=== PATIENT | male | born 1990 | race Caucasian/White ===

== ENCOUNTER 2019-05-11 22:54 | Inpatient (IN) | payer BC, OTHER ==
[~2019-05-11] VITALS: Ht 188 cm; Wt 144.0 kg
[2019-05-11 23:38] LABS: HEMATOCRIT 48.2 % (42.0-52.0); HEMOGLOBIN 16.4 g/dl (13.5-17.5); MEAN CORPUSCULAR HEMOGLOBIN 30.8 pg (27.0-33.0); MEAN CORPUSCULAR VOLUME 90.4 fl (80.0-96.0); PLATELET COUNT, AUTOMATED 270 10^3/uL (150-450); RED BLOOD COUNT 5.33 10^6/uL (4.30-6.10); WHITE BLOOD COUNT 13.2 10^3/uL (4.0-10.0)
[2019-05-12 00:20] LABS: ALBUMIN 4.8 GM/DL (3.2-5.2); ALT/SGPT 48 U/L (12-78); BILIRUBIN,DIRECT 0.2 MG/DL (0.0-0.2); BILIRUBIN,TOTAL 0.8 MG/DL (0.2-1.0); BLOOD UREA NITROGEN 15 MG/DL (7-18); CALCIUM LEVEL 9.4 MG/DL (8.5-10.1); CARBON DIOXIDE LEVEL 27 MEQ/L (21-32); CHLORIDE LEVEL 106 MEQ/L (98-107); CREATININE FOR GFR 0.93 MG/DL (0.70-1.30); GLOMERULAR FILTRATION RATE > 60.0 (>60); GLUCOSE, FASTING 93 MG/DL (70-100); POTASSIUM SERUM 3.6 MEQ/L (3.5-5.1); SALICYLATE LEVEL < 1.7 MG/DL (5.0-30.0); SODIUM LEVEL 142 MEQ/L (136-145); TOTAL PROTEIN 8.2 GM/DL (6.4-8.2)
[2019-05-12 00:21] LABS: ACETAMINOPHEN LEVEL < 2.0 UG/ML (10.0-30.0)
[2019-05-12] MEDS ORDERED: MAGN400C2 PO (00:53)
[2019-05-12] MEDS ORDERED: ESOM1CAP5 PO (00:53)
[2019-05-12] MEDS ORDERED: QUET400T PO (00:53)
[2019-05-12] MEDS ORDERED: CLON0.5T2 PO (00:53)
[2019-05-12] MEDS ORDERED: CETI10CH PO (00:53)
[2019-05-12] MEDS ORDERED: ESCI20TA PO (00:53)
[2019-05-12] MEDS ORDERED: HYDR25TAB PO (00:53)
[2019-05-12] MEDS ORDERED: FAMO1TAB25 PO (00:53)
[2019-05-12 01:38] LABS: AMPHETAMINES LEVEL URINE NEGATIVE (NEGATIVE); BARBITURATES URINE NEGATIVE (NEGATIVE); BENZODIAZEPINES URINE NEGATIVE (NEGATIVE); CANNABINOIDS URINE POSITIVE (NEGATIVE); COCAINE METABOLITE URINE NEGATIVE (NEGATIVE); METHADONE URINE NEGATIVE (NEGATIVE); OPIATES URINE NEGATIVE (NEGATIVE); PHENCYCLIDINE URINE NEGATIVE (NEGATIVE)
[2019-05-12] MEDS ORDERED: ONDANSETRON 4 MG ORAL DISINTEGRATING TAB (Q0162 PER 1MG) PO ONE (05:00)
[2019-05-12] MEDS ORDERED: diphenhydrAMINE INJ 50MG/ML VIAL (J1200) As Ordered ONE (05:15)
[2019-05-12] MEDS ORDERED: HALOPERIDOL 5 MG/ML VIAL (J1630) As Ordered ONE (05:16)
[2019-05-12] MEDS ORDERED: LORazepam 2 MG/ML VIAL (J2060) As Ordered ONE (05:16)
[2019-05-12] MEDS ORDERED: diphenhydrAMINE INJ 50MG/ML VIAL (J1200) IM ONE (05:30)
[2019-05-12] MEDS ORDERED: LORazepam 2 MG/ML VIAL (J2060) IM ONE (05:30)
[2019-05-12] MEDS ORDERED: HALOPERIDOL 5 MG/ML VIAL (J1630) IM ONE (05:30)
[2019-05-12] MEDS ORDERED: LORazepam 2 MG/ML VIAL (J2060) IV STA (06:07)
[2019-05-12] MEDS ORDERED: clonazePAM 1 MG TAB PO ONE ×2 (12:45→17:45)
[2019-05-12] MEDS ORDERED: FAMOTIDINE 20 MG TAB PO ONE (17:45)
[2019-05-12] MEDS ORDERED: ESCITALOPRAM OXALATE 10 MG TAB (LEXAPRO) PO ONE (17:45)
[2019-05-12] MEDS ORDERED: QUEtiapine FUMARATE 200 MG TAB PO ONE (17:45)
[2019-05-12] MEDS ORDERED: hydroCHLOROthiazide 25 MG TAB PO ONE (17:45)
[2019-05-12] MEDS ORDERED: MAGNESIUM OXIDE 400 MG TAB (MAG-OX) PO ONE (18:00)
[2019-05-12] MEDS ORDERED: OMEPRAZOLE 20 MG CAP PO ONE (19:30)
[2019-05-13] MEDS ORDERED: FAMO40TA3 PO (07:16)
[2019-05-13] MEDS ORDERED: CLON2TAB7 PO (07:16)
[2019-05-13] MEDS ORDERED: LISI10TA4 PO (09:59)
[2019-05-13] MEDS ORDERED: clonazePAM 1 MG TAB PO ONE (10:00)
[2019-05-13] MEDS ORDERED: OMEPRAZOLE 20 MG CAP PO ONE (10:00)
[2019-05-13] MEDS ORDERED: ESCITALOPRAM OXALATE 10 MG TAB (LEXAPRO) PO ONE (10:00)
[2019-05-13] MEDS ORDERED: hydroCHLOROthiazide 25 MG TAB PO ONE (10:00)
[2019-05-13] MEDS ORDERED: lisinopriL 10 MG TAB PO ONE (10:00)
[2019-05-13] MEDS ORDERED: MOM 30ML SUSPENSION UDC PO PRN (12:30)
[2019-05-13] MEDS ORDERED: MAALOX 30 ML SUSP *UDC PO PRN (12:30)
[2019-05-13] MEDS ORDERED: traZODone 50 MG TAB PO PRN (12:30)
[2019-05-13] MEDS ORDERED: QUET200T2 PO (13:07)
[2019-05-13] MEDS ORDERED: ALL10TAB29 PO (13:07)
[2019-05-13] MEDS ORDERED: IPRA3SP (13:07)
[2019-05-13 14:41] VITALS: BP 136/84
[2019-05-13] MEDS: THIAMINE 100 MG TAB PO SCH ×2 (15:08→20:39)
[2019-05-13] MEDS: LORazepam 2 MG TAB PO PRN ×2 (15:08→20:39)
[2019-05-13] MEDS: MULTIVITAMINS/MINERALS THERAP 1 TAB PO SCH (15:09)
[2019-05-13] MEDS: FOLIC ACID 1 MG TAB PO SCH (15:09)
--- NOTE | 2019-05-13 19:51 | HPE ---
DATE OF ADMISSION: 05/13/2019 Date of Service: 05/13/2019 HISTORY OF THE PRESENT ILLNESS: Please refer to psychiatric history and evaluation for further details on this admission. This examination and history is intended for medical issues which may need treatment, followup, or consult on this 29-year-old male. ALLERGIES: CLINDAMYCIN. PRIMARY CARE PROVIDER: Dr. Kushal Leiva and that is in [place], [place]. SOCIAL HISTORY: He is single. He was up here vacationing. Ethyl alcohol (EtOH): Occasionally. He had none for 12 months and then he drank last night. He vapes. He chews a dip a day. Recreational drug use: Marijuana. He states he used it more for pain control of his neck. PAST MEDICAL HISTORY: Decreased hearing right ear. History of sleep apnea, wears his own bilevel positive airway pressure (BiPAP). Chronic neck pain. PAST SURGICAL HISTORY: Cervical spine fusion. Carpal tunnel release on the left. Cholecystectomy. HOME MEDICATIONS: - cetirizine 10 mg by mouth daily - clonazepam 2 mg by mouth three times a day as needed for anxiety - escitalopram 20 mg by mouth daily - famotidine 40 mg by mouth daily - hydrochlorothiazide 25 mg by mouth daily - ipratropium one spray nares three times a day as needed for allergies - lisinopril 10 mg by mouth daily - Seroquel 400 mg by mouth nightly - esomeprazole magnesium 40 mg by mouth twice a day - magnesium oxide 400 mg by mouth daily FAMILY HISTORY: His mother is of Roxanne's chorea. Father is alive and health history is unknown. LABORATORY STUDIES: WBC 13.2, hemoglobin 16.4, hematocrit 48.2, platelets 270. Electrolytes are normal. BUN 15, creatinine 0.93, TSH is 5.220. Toxicology: Urine is positive for cannabinoids. Ethyl alcohol was 0.180. REVIEW OF SYSTEMS: Eleven systems review was done, was unremarkable. No physical complaints. PHYSICAL EXAMINATION: A 29-year-old cooperative male in no acute distress. Height 74 inches, weight 145.45 kilograms, body mass index (BMI) 41.2. The patient is alert and oriented times three. Pupils equal and reactive to light. Extraocular movements intact. Cornea and sclerae clear. Conjunctivae is normal. No facial asymmetry. Pharynx: Tongue and gums pink and moist. Tongue is midline. Neck is supple without lymphadenopathy. No thyromegaly. No goiter. Carotids 2+ without bruits. Chest is clear to auscultation without wheeze or retractions. Heart is regular. Abdomen: Morbidly obese. No masses, pulsations or bruits. No organomegaly. Bowel sounds are positive. Genital/Rectal: Not done. Extremities: No cyanosis, clubbing or edema. Peripheral pulses equal and palpable bilaterally. Skin is warm and dry. IMPRESSION AND PLAN: Psychiatric plan per psychiatry. Slightly elevated thyroid-stimulating hormone (TSH). Will get a thyroid profile in the morning. Leukocytosis. Will repeat complete blood count (CBC) in the morning. Elevation may be secondary to stress. The patient has no hematuria, dysuria, or frequency. Has been afebrile. No cough. History of hypomagnesemia, is on magnesium. Will check a level. History of sleep apnea, patient may use his own BiPAP. History of environmental allergies. Will continue on cetirizine. No other acute medical issues. [facility], [place]
[2019-05-13] MEDS: QUEtiapine FUMARATE 200 MG TAB PO SCH (21:21)
[2019-05-14 06:27] LABS: BASO % 0.4 % (0.0-1.0); EOS # 0.1 10^3/uL (0.0-0.50); EOS % 1.3 % (0.0-3.0); HEMATOCRIT 44.7 % (42.0-52.0); HEMOGLOBIN 15.3 g/dl (13.5-17.5); LYMPH # 3.1 10^3/uL (1.5-4.5); LYMPH % 37.2 % (24.0-44.0); MEAN CORPUSCULAR HEMOGLOBIN 30.6 pg (27.0-33.0); MEAN CORPUSCULAR HGB CONC 34.2 g/dl (32.0-36.5); MEAN CORPUSCULAR VOLUME 89.4 fl (80.0-96.0); MONO # 0.7 10^3/uL (0.0-0.8); MONO % 8.6 % (0.0-5.0); NEUTROPHILS # 4.3 10^3/uL (1.8-7.7); NEUTROPHILS % 52.1 % (36.0-66.0); PLATELET COUNT, AUTOMATED 218 10^3/uL (150-450); WHITE BLOOD COUNT 8.2 10^3/uL (4.0-10.0)
[2019-05-14 06:49] VITALS: BP 145/89
[2019-05-14 06:50] VITALS: BP 145/89
[2019-05-14 07:02] LABS: FREE THYROXINE INDEX 2.8 % (1.4-3.8); MAGNESIUM LEVEL 2.3 MG/DL (1.8-2.4); THYROID STIMULATING HORMONE 1.93 uIU/ML (0.358-3.740); THYROXINE (T4) 9.2 UG/DL (4.5-12.0)
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
[2019-05-14] MEDS: THIAMINE 100 MG TAB PO SCH ×2 (08:20→20:49)
[2019-05-14] MEDS: ESCITALOPRAM OXALATE 10 MG TAB (LEXAPRO) PO SCH (08:20)
[2019-05-14] MEDS: FOLIC ACID 1 MG TAB PO SCH (08:20)
[2019-05-14] MEDS: MULTIVITAMINS/MINERALS THERAP 1 TAB PO SCH (08:20)
[2019-05-14] MEDS: LORazepam 2 MG TAB PO PRN ×4 (08:21→20:48)
[2019-05-14 08:55] VITALS: BP 175/98
[2019-05-14] MEDS: lisinopriL 10 MG TAB PO SCH (10:36)
[2019-05-14] MEDS: hydroCHLOROthiazide 25 MG TAB PO SCH (10:36)
[2019-05-14 11:07] VITALS: BP 138/77
[2019-05-14] MEDS: lamoTRIgine 25 MG TAB PO SCH (11:49)
[2019-05-14] MEDS: OMEPRAZOLE 20 MG CAP PO SCH ×2 (12:44→20:48)
[2019-05-14 16:41] VITALS: BP 158/98
[2019-05-14 20:00] VITALS: BP 137/77
--- NOTE | 2019-05-14 20:21 | MHIPN ---
DATE: 05/14/2019 VITAL SIGNS: Temperature 98.3, pulse 92, respirations 12, blood pressure 145/89. CURRENT MEDICATIONS: - Lexapro 20 mg daily - Seroquel 400 mg nightly - Ativan 2 mg every 4 hours as needed HISTORY OF PRESENT ILLNESS: Patient still reports feeling depressed, moderately to severely so. Patient becomes weepy talking about situational stressors. He claims he spoke to his girlfriend on the phone this morning. She has been concerned about him for the past 3 months, he has been quite depressed and irritable for this period of time. He gives verbal permission to speak to her. Patient is starting to attend groups. Patient is very fixated on going on a trial of Lamictal. Risk of Moe-Jesús syndrome thoroughly reviewed. Patient appears to think that Lamictal will be a panacea and a wonder drug. Patient is cautioned against such thinking. Patient is warned that it can take many weeks or even months to build up the therapeutic dosages but he is still highly adamant about going on a trial. No panic attacks here on the unit. Obsessive compulsive disorder (OCD) symptoms are mild. No posttraumatic stress disorder (PTSD) symptoms. MENTAL STATUS EXAMINATION: Patient is alert and oriented. Grooming and hygiene is reasonably good. He has good eye contact. Patient still reports depressive symptoms, now they are moderate to severe, not mild in degree. No signs of vanessa. He denies current suicidality. Patient is nonpsychotic. He does have a history of poor impulse control. Insight and judgment appear fair. Memory functions appear intact. ASSESSMENT: Patient appears to have an unrealistic expectation about Lamictal. Side effect profile thoroughly reviewed. DIAGNOSES: 1. Depressive disorder unspecified. 2. Rule out major depression. 3. Obsessive compulsive disorder. 4. Panic anxiety disorder. 5. Alcohol use disorder. 6. Posttraumatic stress disorder (PTSD) by history. 7. Rule out intermittent explosive disorder. PLAN: Start trial of Lamictal 25 mg daily. Staff to obtain further information from friends and family who are in the [place], [place] area. Patient encouraged to be involved in hospital milieu.
[2019-05-14] MEDS: QUEtiapine FUMARATE 200 MG TAB PO SCH (21:25)
[2019-05-15 06:51] VITALS: BP 118/75
[2019-05-15] MEDS: lamoTRIgine 25 MG TAB PO SCH (08:57)
[2019-05-15] MEDS: THIAMINE 100 MG TAB PO SCH (08:57)
[2019-05-15] MEDS: LORazepam 2 MG TAB PO PRN ×3 (08:57→13:01)
[2019-05-15] MEDS: hydroCHLOROthiazide 25 MG TAB PO SCH (08:57)
[2019-05-15] MEDS: FOLIC ACID 1 MG TAB PO SCH (08:57)
[2019-05-15] MEDS: MULTIVITAMINS/MINERALS THERAP 1 TAB PO SCH (08:57)
[2019-05-15] MEDS: ESCITALOPRAM OXALATE 10 MG TAB (LEXAPRO) PO SCH (08:57)
[2019-05-15] MEDS: OMEPRAZOLE 20 MG CAP PO SCH ×2 (08:58→21:36)
[2019-05-15] MEDS: lisinopriL 10 MG TAB PO SCH (08:59)
[2019-05-15] MEDS: clonazePAM 1 MG TAB PO PRN ×2 (16:03→21:36)
[2019-05-15 18:00] VITALS: BP 150/96
[2019-05-15] MEDS: QUEtiapine FUMARATE 200 MG TAB PO SCH (21:36)
[2019-05-15 21:39] VITALS: BP 138/89
[2019-05-16] MEDS: clonazePAM 1 MG TAB PO PRN ×3 (06:10→18:03)
[2019-05-16 06:53] VITALS: BP 150/69
[2019-05-16] MEDS: MULTIVITAMINS/MINERALS THERAP 1 TAB PO SCH (08:18)
[2019-05-16] MEDS: lamoTRIgine 25 MG TAB PO SCH (08:18)
[2019-05-16] MEDS: ESCITALOPRAM OXALATE 10 MG TAB (LEXAPRO) PO SCH (08:19)
[2019-05-16] MEDS: lisinopriL 10 MG TAB PO SCH (08:19)
[2019-05-16] MEDS: OMEPRAZOLE 20 MG CAP PO SCH ×2 (08:19→20:50)
[2019-05-16] MEDS: FOLIC ACID 1 MG TAB PO SCH (08:19)
[2019-05-16] MEDS: hydroCHLOROthiazide 25 MG TAB PO SCH (08:19)
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
[2019-05-16] MEDS ORDERED: haloperidoL 5 MG TAB PO ONE (12:00)
--- NOTE | 2019-05-16 13:30 | MHIPN ---
DATE: 05/15/2019 VITAL SIGNS: Temperature 98.0, pulse 77, respirations 12, blood pressure 118/75. CURRENT MEDICATIONS: - Ativan 2 mg four times a day - Lamictal 25 mg every morning - Lexapro 20 mg daily - Seroquel 400 mg nightly HISTORY OF PRESENT ILLNESS: Patient states his depression is less prominent today. He still complains of a great deal of anxiety however. He claims the Ativan is not as effective as the Klonopin. He claims that he takes four Klonopin per day for a number of years, he claims he does not abuse it. He claims he has a supply of Klonopin in his personal effects which is being prescribed by his primary care physician back in [place]. Patient pleased to be on the Lamictal, he is aware of the risk of Moe-Jesús syndrome and will notify staff if he shows any signs of a rash. Patient has been in touch with his girlfriend down in [place], she supports his hospitalization. Patient states that he has been attending groups and finds the therapy program helpful here. He states his appetite is fine. He sleeps well at night. He has no other complaints. MENTAL STATUS EXAMINATION: Patient alert, oriented, and cooperative. Affect is still sad, he gets tearful hearing about my departure. Mood is still mildly to moderately depressed. Patient reports anxiety level is high. He denies suicidal ideation. Grooming and hygiene appear good. No current signs of dangerousness. Insight and judgment are fair. ASSESSMENT: Patient appears to be responding to medication and milieu. Patient appears quite physiologically dependent upon his Klonopin. DIAGNOSES: 1. Depressive disorder unspecified. 2. Rule out major depression. 3. Obsessive compulsive disorder (OCD). 4. Panic anxiety disorder. 5. Alcohol use disorder. 6. Posttraumatic stress disorder (PTSD) by history. 7. Rule out intermittent explosive disorder. PLAN: Discontinue Ativan. Patient is switched back to Klonopin which he has been on for years apparently. Continue medication and milieu therapy. Patient to followup with Dr. Nunez tomorrow.
[2019-05-16] MEDS: haloperidoL 5 MG TAB PO SCH ×2 (17:06→20:49)
[2019-05-16 18:00] VITALS: BP 138/85
[2019-05-16] MEDS: IBUPROFEN 400 MG TAB PO PRN (20:00)
[2019-05-16] MEDS: QUEtiapine FUMARATE 200 MG TAB PO SCH (20:49)
[2019-05-17 06:44] VITALS: BP 148/78
[2019-05-17] MEDS: ESCITALOPRAM OXALATE 10 MG TAB (LEXAPRO) PO SCH (08:29)
[2019-05-17] MEDS: OMEPRAZOLE 20 MG CAP PO SCH ×2 (08:29→20:57)
[2019-05-17] MEDS: lamoTRIgine 25 MG TAB PO SCH (08:29)
[2019-05-17] MEDS: hydroCHLOROthiazide 25 MG TAB PO SCH (08:29)
[2019-05-17] MEDS: MULTIVITAMINS/MINERALS THERAP 1 TAB PO SCH (08:29)
[2019-05-17] MEDS: haloperidoL 5 MG TAB PO SCH ×3 (08:29→20:57)
[2019-05-17] MEDS: FOLIC ACID 1 MG TAB PO SCH (08:29)
[2019-05-17] MEDS: lisinopriL 10 MG TAB PO SCH (08:30)
[2019-05-17] MEDS: clonazePAM 1 MG TAB PO PRN ×3 (08:32→20:57)
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
[2019-05-17 18:37] VITALS: BP 152/88
[2019-05-17] MEDS: QUEtiapine FUMARATE 200 MG TAB PO SCH (20:57)
[2019-05-18 06:46] VITALS: BP 108/54
[2019-05-18] MEDS: hydroCHLOROthiazide 25 MG TAB PO SCH (08:16)
[2019-05-18] MEDS: FOLIC ACID 1 MG TAB PO SCH (08:17)
[2019-05-18] MEDS: MULTIVITAMINS/MINERALS THERAP 1 TAB PO SCH (08:17)
[2019-05-18] MEDS: haloperidoL 5 MG TAB PO SCH ×3 (08:17→20:38)
[2019-05-18] MEDS: OMEPRAZOLE 20 MG CAP PO SCH ×2 (08:17→20:38)
[2019-05-18] MEDS: ESCITALOPRAM OXALATE 10 MG TAB (LEXAPRO) PO SCH (08:17)
[2019-05-18] MEDS: lisinopriL 10 MG TAB PO SCH (08:18)
[2019-05-18] MEDS: clonazePAM 1 MG TAB PO PRN ×2 (09:35→16:05)
[2019-05-18] MEDS ORDERED: clonazePAM 1 MG TAB PO PRN (12:00)
[2019-05-18 18:00] VITALS: BP 154/98
[2019-05-18] MEDS: QUEtiapine FUMARATE 200 MG TAB PO SCH (20:38)
[2019-05-18] MEDS: IBUPROFEN 400 MG TAB PO PRN (20:46)
[2019-05-18] MEDS: BENZTROPINE 0.5 MG TAB PO SCH (21:00)
[2019-05-19 06:53] VITALS: BP 136/81
[2019-05-19] MEDS: clonazePAM 1 MG TAB PO PRN ×2 (08:29→15:06)
[2019-05-19] MEDS: lisinopriL 10 MG TAB PO SCH (08:30)
[2019-05-19] MEDS: FOLIC ACID 1 MG TAB PO SCH (08:30)
[2019-05-19] MEDS: ESCITALOPRAM OXALATE 10 MG TAB (LEXAPRO) PO SCH (08:30)
[2019-05-19] MEDS: haloperidoL 5 MG TAB PO SCH ×2 (08:30→20:04)
[2019-05-19] MEDS: MULTIVITAMINS/MINERALS THERAP 1 TAB PO SCH (08:30)
[2019-05-19] MEDS: OMEPRAZOLE 20 MG CAP PO SCH ×2 (08:30→20:04)
[2019-05-19] MEDS: BENZTROPINE 0.5 MG TAB PO SCH ×2 (08:30→20:05)
[2019-05-19] MEDS: hydroCHLOROthiazide 25 MG TAB PO SCH (08:30)
[2019-05-19] MEDS ORDERED: BENZTROPINE 0.5 MG TAB PO ONE (15:00)
[2019-05-19] MEDS ORDERED: clonazePAM 1 MG TAB PO PRN (16:00)
[2019-05-19 18:00] VITALS: BP 148/92
--- NOTE | 2019-05-19 18:05 | MHIPNPDOC ---
[facility] Progress Note Progress Note Date of Service: 05/19/2019 History of Present Illness 29-year-old man who is admitted due to multiple problems with depression, reported bipolar disorder and PTSD. He has been treated on the inpatient unit and was interested in speaking with his provider for medication. He notably has been on Haldol 5 mg TID with jaw pain that appears resistant to as needed Cogentin 0.5 mg twice daily. Interval History The patient is met with and describes that he wishes to have his clonazepam changed to 1 mg every 4 hours with the same dose rather than 2 mg twice daily as he notes he has significant rebound anxiety. During the periods in between, discussed the long-term nature of clonazepam and it's likeliness to be unuseful as an outpatient. The patient describes that he continued to have jaw pain and thus the Haldol will be lowered. He describes the Cogentin is somewhat helpful, but he still remains with other problems. Review Of Systems Reports some improving hopelessness, depressed mood, although he does report some traumatic remembrance. Psychotherapy None on this visit. Vital Signs Reviewed. Mental Status Examination General: Well dressed with good hygiene Speech: Spontaneous and fluid Thought processes: Linear and logical MSK: Smooth and coordinated gait, no signs of tremors or involuntary orofacial movements Thought content: Future orientated Abstract reasoning, and computation: Intact Description of associations: Intact Description of abnormal or psychotic thoughts: Denies any suicidal or homicidal ideation. Denies any auditory or visual hallucinations. Does not appear to be responding to internal stimuli. Does not appear to be endorsing any bizarre or paranoid ideation. Judgment: fair Insight: fair Orientation: Alert and orientated 3 Cognition: Grossly normal Recent and remote memory: Intact Attention span and concentration: Intact Fund of knowledge: Adequate Mood: "okay" Affect: Euthymic with a full range Diagnoses Unspecified bipolar disorder. Unspecified trauma/stress-related disorder. Assessment and Plan The patient's clonazepam will be changed to the aforementioned Haldol to 5 mg BID with Cogentin as he was experiencing EPS that was fairly uncomfortable. Discussed the importance of psychotherapy and outpatient follow-up. Disposition The patient will need a further inpatient admission for safety planning. Time Spent Fifteen minutes face to face. Monday Vital Signs Vital Signs Date Time Temp Pulse Resp B/P (MAP) Pulse Ox O2 Delivery O2 Flow Rate FiO2 05/19/19 08:30 156/98 05/19/19 06:53 98.0 83 14 05/13/19 09:29 97 Room Air Current Medications Current Medications Medications (Trade) Dose Ordered Sig/Marcella Route PRN Reason Start Time Stop Time Status Last Admin Dose Admin Al Hydrox/Mg Hydrox/Simethicone (Mylanta) 30 ml Q4HP PRN PO HEARTBURN/INDIGESTION 05/13/19 12:30 Benztropine Mesylate (Cogentin) 0.5 mg BID PO 05/18/19 21:00 05/19/19 08:30 Clonazepam (KlonoPIN) 1 mg Q4HP PRN PO ANXIETY 05/19/19 16:00 Clonazepam (KlonoPIN) 1 mg Q6HP PRN PO ANXIETY/AGITATION 05/18/19 12:00 Cancel Clonazepam (KlonoPIN) 2 mg Q6HP PRN PO ANXIETY 05/15/19 13:15 05/18/19 11:55 DC 05/18/19 09:35 Clonazepam (KlonoPIN) 2 mg Q6HP PRN PO ANXIETY 05/18/19 15:15 05/19/19 15:56 DC 05/19/19 15:06 Escitalopram Oxalate (Lexapro) 20 mg DAILY PO 05/14/19 09:00 05/19/19 08:30 Folic Acid (Folic Acid) 1 mg DAILY PO 05/13/19 09:00 05/19/19 08:30 Haloperidol (Haldol) 5 mg BID PO 05/19/19 21:00 Haloperidol (Haldol) 5 mg TID PO 05/16/19 16:00 05/19/19 14:53 DC 05/19/19 08:30 Home Med (Med Rec Complete!) ASDIRECTED XX 05/13/19 13:15 05/13/19 13:23 DC Hydrochlorothiazide (Hydrodiuril) 25 mg DAILY PO 05/14/19 09:00 05/19/19 08:30 Ibuprofen (Advil) 400 mg Q6HP PRN PO PAIN 05/13/19 12:30 05/18/19 20:46 Lamotrigine (LaMICtal) 25 mg QAM PO 05/14/19 11:30 05/17/19 10:24 DC 05/17/19 08:29 Lisinopril (Prinivil) 10 mg DAILY PO 05/14/19 09:00 05/19/19 08:30 Lorazepam (Ativan) 2 mg ASDIRECTED PRN PO SEE PROTOCOL 05/13/19 12:30 05/15/19 13:18 DC 05/13/19 15:08 Lorazepam (Ativan) 2 mg Q4HP PRN PO ANXIETY/AGITATION 05/13/19 14:15 05/15/19 13:18 DC 05/15/19 13:01 Lorazepam (Ativan) 2 mg STAT STAT IV 05/12/19 06:07 05/12/19 06:08 DC 05/12/19 06:32 Magnesium Hydroxide (Milk Of Magnesia) 30 ml DAILYPRN PRN PO CONSTIPATION 05/13/19 12:30 Multivitamins (Theragram-M) 1 tab DAILY PO 05/13/19 09:00 05/19/19 08:30 Omeprazole (PriLOSEC) 40 mg BID PO 05/14/19 09:00 05/19/19 08:30 Quetiapine Fumarate (SEROquel) 400 mg QHS PO 05/13/19 21:00 05/18/19 20:38 Thiamine HCl (Thiamine HCl) 100 mg BID PO 05/13/19 09:00 05/15/19 13:18 DC 05/15/19 08:57 Trazodone HCl (Desyrel) 50 mg QHSP PRN PO INSOMNIA 05/13/19 12:30 Allergies Coded Allergies: clindamycin (Verified Allergy, Unknown, 05/11/19) KATIE ESPARZA DO May 19, 2019 18:05
[2019-05-19] MEDS: QUEtiapine FUMARATE 200 MG TAB PO SCH (20:04)
[2019-05-19] MEDS: IBUPROFEN 400 MG TAB PO PRN (20:05)
[2019-05-20 06:57] VITALS: BP 137/87
[2019-05-20] MEDS: OMEPRAZOLE 20 MG CAP PO SCH (08:43)
[2019-05-20] MEDS: BENZTROPINE 0.5 MG TAB PO SCH (08:43)
[2019-05-20] MEDS: MULTIVITAMINS/MINERALS THERAP 1 TAB PO SCH (08:43)
[2019-05-20] MEDS: FOLIC ACID 1 MG TAB PO SCH (08:43)
[2019-05-20] MEDS: haloperidoL 5 MG TAB PO SCH (08:44)
[2019-05-20] MEDS: ESCITALOPRAM OXALATE 10 MG TAB (LEXAPRO) PO SCH (08:44)
[2019-05-20] MEDS: hydroCHLOROthiazide 25 MG TAB PO SCH (08:44)
[2019-05-20 08:47] VITALS: BP 158/96
[2019-05-20] MEDS: lisinopriL 10 MG TAB PO SCH (08:47)
[2019-05-20] MEDS ORDERED: BENZ0.5T23 PO (09:26)
[2019-05-20] MEDS ORDERED: ESCI20TA PO (09:26)
[2019-05-20] MEDS ORDERED: HALO5TA PO (09:26)
[2019-05-20] MEDS ORDERED: QUET200T2 PO (09:26)
--- NOTE | 2019-05-20 09:27 | MHDSPDOC ---
[facility] Discharge Summary Discharge Summary DATE OF ADMISSION: May 13, 2019 at 12:26 pm DATE OF DISCHARGE: May 20, 2019 DISCHARGE DIAGNOSES: 1. Depressive disorder unspecified. 2. Rule out major depression. 3. Obsessive compulsive disorder. 4. Panic anxiety disorder. 5. Alcohol use disorder. 6. Posttraumatic stress disorder (PTSD) by history. 7. Rule out intermittent explosive disorder. REASON FOR ADMISSION: Per Dr. Edwards "This is a 29-year-old white male single currently homeless. The patient was on vacation here with some friends who then left him stranded. He was waiting at the bus station for a ride back to the [place] area where he lives. He decided to get intoxicated so he could sleep on the ground behind the bus station. He then became more depressed apparently calling a friend and expressing suicidal ideation. His friend then contacted the police department who brought him into the emergency room. The patient states he does have a history of depressive episodes which are quite brief lasting only 1-2 days at a time. He states that in general his appetite is good. He does have hypersomnia at times. His concentration is usually good. He does get pleasure out of life, when he is depressed however he feels apathetic. He has a history of bipolar disorder type 2 he reports from [place]. He disagrees with this diagnosis. He denies ever having a history of vanessa. He has primarily depressive symptoms which, however, are brief as mentioned above. He does report a history of explosive behavior. He thinks he has a diagnosis of intermittent explosive disorder. The patient does have history of obsessive compulsive disorder (OCD). He has always been a checkerer hand. He has rituals dating back to childhood. He also has history of panic attacks and avoids crowded situations. The patient does have a history of alcoholism as well dating back to teenage years. He has a history of blackouts. The patient claims to have a history of post traumatic stress disorder (PTSD) from being homeless as a teenager. The patient had a difficult childhood. His mother had Oak[place]'s disease and was an alcoholic. She was verbally abusive towards him and this is the source of his PTSD symptoms." CONSULTANTS INVOLVED: none TREATMENT AND PROGRESS ON THE UNIT : Pt was admitted to [facility], seen for psychiatric assessment and restarted on his outpatient medication lexapro 20mg daily, seroquel 400mg qhs for mood. He was started on haldol 5mg gid for interment explosive d/o that he found very beneficial for improved anxiety and anger and cogentin 1mg bid for eps. He was provided trazodone 50mg qhs prn ins omnia. Pt found his medications beneficial and tolerated them well. He attended groups daily during his stay. His symptoms improved with treatment. On day of discharge he denied depression, anxiety, anger, insomnia, SI/HI, hallucinations, delusions. He was discharged home with his girlfriend with follow-up at outpatient in [place]. He felt safe for discharge. DISCHARGE ASSESSMENT: Pt seen and states he's doing "good" and feels overall "better and calmer" after starting haldol for anger/impulse control as he's finding it very beneficial. Denies eps/dystonic symptoms with the start of cogentin over the weekend that he's tolerating well. He is attending groups and finding beneficial to learn coping skills and anger management skills. He Continually learned how to manage his explosive anger as it is a big problem in his life regarding his social relationships like with his girlfriend as he feels extremely guilty after he explodes due to the things he says while angry. He is pleasant, polite, and cooperative. Endorses greatly improved anxiety with addition of haldol. He is no longer depressed and crying, anxious. Denies depression, anxiety, anger, insomnia, SI/HI, hallucinations, delusions. Feels safe safe to be discharged home to [place] with his girlfriend. MENTAL STATUS EXAMINATION ON DISCHARGE: Patient is alert and oriented. Grooming and hygiene is good. He has good eye contact. Patient still reports greatly improved anxiety/anger symptoms. No signs of vanessa. He denies current suicidality or homicidality. Patient is nonpsychotic. He does have a history of poor impulse control although he has not been aggressive/agitated on the unit during his stay but pleasant and cooperative. Insight and judgment appear good. Memory functions appear intact. MEDICATIONS ON DISCHARGE: - Lexapro 20 mg daily - Seroquel 400 mg nightly - haldol 5mg bid - cogentin 0.5mg bid PLAN/FOLLOWUP ARRANGEMENTS: D/c home with his girlfriend with follow-up at outpatient in [facility]. The amount of time spent in the coordination of care for this patient was approximately 30 minutes. Vital Signs/I&Os Vital Signs Date Time Temp Pulse Resp B/P (MAP) Pulse Ox O2 Delivery O2 Flow Rate FiO2 05/20/19 08:47 158/96 05/20/19 06:57 98.9 88 16 Medications Scheduled Cetirizine HCl (Cetirizine HCl) 10 Mg Tablet, 10 MG PO DAILY, (Reported) Escitalopram Oxalate (Escitalopram Oxalate) 20 Mg Tablet, 20 MG PO DAILY, (Reported) Esomeprazole Magnesium (Esomeprazole Magnesium) 40 Mg Capsule.dr, 40 MG PO BID, (Reported) Famotidine (Famotidine) 40 Mg Tablet, 40 MG PO DAILY, (Reported) Hydrochlorothiazide (Hydrochlorothiazide) 25 Mg Tablet, 25 MG PO DAILY, (Reported) Lisinopril (Lisinopril) 10 Mg Tablet, 10 MG PO DAILY, (Reported) Magnesium Oxide (Magnesium) 400 Mg Capsule, 400 MG PO DAILY, (Reported) Quetiapine Fumarate (Quetiapine Fumarate) 200 Mg Tablet, 400 MG PO QHS, (Reported) Scheduled PRN Clonazepam (Clonazepam) 2 Mg Tablet, 2 MG PO TID PRN for ANXIETY, (Reported) Ipratropium Miller (Ipratropium Miller) 30 Ml [place], 1 SPRAY NA TID PRN for ALLERGIES, (Reported) Allergies Coded Allergies: clindamycin (Verified Allergy, Unknown, 05/11/19) IBIS OJEDA DO May 20, 2019 9:27 am
[2019-05-20 11:58] VITALS: BP 128/96
== END 2019-05-20 12:50 | disposition home or self-care (01) | DRG 754 ==
LOC: M ED 22:54 → M ED INP 05-13 12:26 → M PSY 05-13 13:46
PROVIDERS: ADMIT Psychiatry & Neurology Psychiatry; ATTEND Psychiatry & Neurology Psychiatry
DX: F32.9 Major depressive disorder, single episode, unspecified (principal); D72.829 Elevated white blood cell count, unspecified; F10.10 Alcohol abuse, uncomplicated; F43.10 Post-traumatic stress disorder, unspecified; F41.0 Panic disorder [episodic paroxysmal anxiety]; F42.9 Obsessive-compulsive disorder, unspecified; F63.81 Intermittent explosive disorder; Z59.0 Homelessness; Z79.899 Other long term (current) drug therapy; Z88.8 Allergy status to other drugs, medicaments and biological substances; F17.220 Nicotine dependence, chewing tobacco, uncomplicated